=== PATIENT | female | born 1985 | race Two or more races ===

== ENCOUNTER → 2019-03-15 | Outpatient (CLI) | payer SELFPAY ==
--- NOTE | 2019-03-15 13:36 | RADIOLOGY REPORT (SQ) ---
EXAM DESCRIPTION: U/S [id number] TRNABD 1GES W/ODOP COMPLETED DATE/TIME: 03/15/2019 1:15 pm REASON FOR STUDY: Z34.81 ENCOUNTER FOR SUPRVSN OF NORMAL , FIRST TRIMESTER Z34.81 ENCOUNTE R FOR SUPRVSN OF NORMAL , FIRST TRIM COMPARISON: None. TECHNIQUE: Transabdominal static and realtime grayscale images acquired of the pelvis. Additional se lected spectral and color Doppler images recorded. All images stored on PACs. bHCG: Not applicable. CLINICAL DATES: 10 weeks 6 days. LIMITATIONS: None. FINDINGS: FETUS: Single Living intrauterine . ULTRASOUND EGA: 11 weeks 3 days. ULTRASOUND GABRIELLE: 10/01/2019 EFW: Not applicable less than 20 weeks. CRL: 4.66 cm. FHR: 158 beats per minute. SURVEY: Too early to assess. AMNIOTIC FLUID: Adequate amount. PLACENTA: Not yet developed due to early gestation. SUBCHORIONIC BLEED: No. SIZE OF BLEED: Not applicable. UTERUS: No masses. No anomalies. CERVICAL LENGTH: 3.3 cm. Closed. RIGHT ADNEXA: Normal ovary with normal vascular flow. No adnexal free fluid. No adnexal masses. LEFT ADNEXA: Normal ovary with normal vascular flow. No adnexal free fluid. No adnexal masses. FREE FLUID: None. OTHER: No other significant finding. IMPRESSION: LIVING INTRAUTERINE . EGA 11 WEEKS 3 DAYS. Rib Trimester of : First trimester - 0 to 13 weeks. TECHNICAL DOCUMENTATION: JOB ID: [id number] [employer]- All Rights Reserved rev Reading location - IP/workstation name: [email or web address]
== END ==
LOC: RAD 12:34
PROVIDERS: ATTEND Midwife
DX: Z34.81 Encounter for supervision of other normal pregnancy, first trimester (principal)
CPT/HCPCS: 76801

== ENCOUNTER → 2019-05-09 | Outpatient (CLI) | payer SELFPAY ==
--- NOTE | 2019-05-09 10:21 | RADIOLOGY REPORT (SQ) ---
EXAM DESCRIPTION: U/S OB 14+ TRNABD 1GES W/O DOP COMPLETED DATE/TIME: 05/09/2019 10:11 am REASON FOR STUDY: ENCTR FOR SUPERVISION OF OTHER NORMAL , 2ND TRIMESTER (Z34.82) Z34.82 EN COUNTER FOR SUPRVSN OF NORMAL , SECOND TRI COMPARISON: 03/15/2019 TECHNIQUE: Static and Dynamic grayscale imaging performed of gravid uterus using transabdominal appr oach. Additional selected color Doppler and spectral images recorded. All stored on PACS. LIMITATIONS: None. FINDINGS: FETUSES SEEN:1 EGA: 19 weeks 1 day. Calculated using BPD,FL,HC,AC documented on images. No discrepancy with clinica l dates. GABRIELLE: 10/02/2019 EFW: 275 grams PERCENTILE: Not applicable. LVP: 3.5 cm. PLACENTA: Posterior location. Grade 1. PRESENTATION: Cephalic. ANATOMY: HEART RATE: 144 beats per minute. FOUR CHAMBER HEART: Visualized. THREE VESSEL CORD: Yes. CORD INSERTION: Visualized. KIDNEYS AND BLADDER: Visualized. Appear normal. STOMACH: Visualized. Appears normal. SPINE: Normal as visualized. BRAIN AND LATERAL VENTRICLES: Visualized. Appear normal. OTHER: No other significant finding. MATERNAL ADNEXA: Ovaries within normal limits. CERVICAL LENGTH: 2.6 cm. Closed. OTHER: No other significant finding. IMPRESSION: LIVING INTRAUTERINE . ESTIMATED GESTATIONAL AGE 19 WEEKS 1 DAY. NO VISUALIZED ANOMALIES. Trimester of : SECOND-TRIMESTER. TECHNICAL DOCUMENTATION: JOB ID: [id number] [employer]- All Rights Reserved Reading location - IP/workstation name: [email or web address]
== END ==
LOC: RAD 09:18
PROVIDERS: ATTEND Midwife
DX: Z34.82 Encounter for supervision of other normal pregnancy, second trimester (principal); Z3A.19 19 weeks gestation of pregnancy
CPT/HCPCS: 76805

== ENCOUNTER 2019-09-25 04:30 | Inpatient (IN) | payer SELFPAY ==
[2019-09-25] MEDS ORDERED: LIDOCAINE 1% INJ-PF (10 MG/ML) 30 ML SDV ONE (05:02)
[2019-09-25] MEDS ORDERED: MISOPROSTOL 0.2 MG TABLET ONE (05:02)
[2019-09-25] MEDS ORDERED: OXYTOCIN/NORMAL SALINE 20 UNIT/1,000 ML RTUINJ ONE (05:02)
[2019-09-25] MEDS ORDERED: OXYTOCIN 10 UNIT/ML VIAL ONE (05:02)
[2019-09-25] MEDS ORDERED: RINGERS SOLUTION,LACTATED 1,000 ML IV ONE (05:05)
[2019-09-25] MEDS ORDERED: RINGERS SOLUTION,LACTATED 1,000 ML IV PRN (05:05)
[2019-09-25 05:19] LABS: APPEARANCE,URINE CLOUDY; BILIRUBIN,URINE NEGATIVE (NEGATIVE); COLOR,URINE YELLOW; GLUCOSE, URINE 50 mg/dL (NEGATIVE); KETONES,URINE NEGATIVE (NEGATIVE); LEUKOCYTE ESTERASE,URINE MODERATE (NEGATIVE); NITRITE,URINE NEGATIVE (NEGATIVE); PROTEIN,URINE NEGATIVE (NEGATIVE); URINE SPECIFIC GRAVITY 1.017; UROBILINOGEN,URINE NEGATIVE mg/dL (<2.0)
[2019-09-25 05:39] LABS: URINE AMPHETAMINES SCREEN NEGATIVE; URINE BARBITURATES SCREEN NEGATIVE; URINE BENZODIAZEPINES SCREEN NEGATIVE; URINE COCAINE SCREEN NEGATIVE; URINE MARIJUANA (THC) SCREEN NEGATIVE; URINE METHADONE SCREEN NEGATIVE; URINE PHENCYCLIDINE SCREEN NEGATIVE
[2019-09-25 05:41] LABS: ABSOLUTE EOSINOPHILS # (AUTO) 0.1 10^3/uL (0.0-0.6); ABSOLUTE LYMPHOCYTES (AUTO) 1.5 10^3/uL (0.5-4.7); ABSOLUTE MONOCYTES (AUTO) 0.6 10^3/uL (0.1-1.4); ABSOLUTE NEUT (AUTO) 9.8 10^3/uL (1.7-8.2); BASOPHILS % (AUTO) 0.3 % (0-2); HEMOGLOBIN 13.1 g/dL (12.0-15.5); LYMPHOCYTES % (AUTO) 12.7 % (13-45); MEAN CORPUSCULAR HEMOGLOBIN 32.3 pg (27.0-33.4); MEAN CORPUSCULAR HGB CONC 35.4 g/dL (32.0-36.0); MEAN CORPUSCULAR VOLUME 91 fl (80-97); PLATELET COUNT 162 10^3/uL (150-450); RED BLOOD COUNT 4.05 10^6/uL (3.72-5.28); RED CELL DISTRIBUTION WIDTH 13.6 % (11.5-14.0); TOTAL CELLS COUNTED % (AUTO) 100 %; WHITE BLOOD COUNT 12.1 10^3/uL (4.0-10.5)
[2019-09-25] MEDS ORDERED: BENZOCAINE/MENTHOL AEROSOL SPRAY 56 ML TOP PRN (05:58)
[2019-09-25] MEDS ORDERED: GLYCERIN/WITCH HAZEL LEAF 1 EACH MED..WIPE TP PRN (05:58)
[2019-09-25] MEDS ORDERED: DIPHENHYDRAMINE HCL 25 MG CAPSULE PO PRN (05:58)
[2019-09-25] MEDS ORDERED: MISOPROSTOL 0.2 MG TABLET PR PRN (05:58)
[2019-09-25] MEDS ORDERED: ACETAMINOPHEN 325 MG TABLET PO PRN (05:58)
[2019-09-25] MEDS ORDERED: ZOLPIDEM TARTRATE 5 MG TABLET PO PRN (05:58)
[2019-09-25] MEDS ORDERED: NA PHOS,M-B/NA PHOS,DI-BA (ADULT) 133 ML ENEMA PR PRN (05:58)
[2019-09-25] MEDS ORDERED: DIBUCAINE 1% OINTMENT 28 GM TP PRN (05:58)
[2019-09-25] MEDS ORDERED: MEASLES,MUMPS&RUBELLA VACC/PF 0.5 ML VIAL SUBCUT PRN (05:58)
[2019-09-25] MEDS ORDERED: PROMETHAZINE HCL INJ 25 MG/1 ML VIAL IV PRN (05:58)
[2019-09-25] MEDS ORDERED: PSEUDOEPHEDRINE HCL 30 MG TABLET PO PRN (05:58)
[2019-09-25] MEDS ORDERED: PROMETHAZINE HCL 25 MG SUPP.RECT PR PRN (05:58)
[2019-09-25] MEDS ORDERED: OXYTOCIN/NORMAL SALINE 20 UNIT/1,000 ML RTUINJ IV PRN (05:58)
[2019-09-25] MEDS ORDERED: PROMETHAZINE HCL 25 MG TABLET PO PRN (05:58)
[2019-09-25] MEDS ORDERED: ACETAMINOPHEN WITH CODEINE #3 TABLET PO PRN ×2 (05:58)
[2019-09-25] MEDS ORDERED: DIPH/PERTUSS(ACELL)/TETANUS VAC/PF 0.5 ML SYR (>=10YO) IM PRN (05:58)
[2019-09-25] MEDS ORDERED: MAGNESIUM HYDROXIDE SUSP 30 ML UDCUP PO PRN (05:58)
--- NOTE | 2019-09-25 06:39 | Admission Physical ---
Datetime Report Generated by CPN: 09/25/2019 06:39 CURRENT ADMISSION Chief Complaint: Uterine Contractions Indication for Induction: Not Applicable Admit Impression : Term, Intrauterine ; Active Labor; Intact Membranes Admit Plan: Admit to Unit; Initiate Labor Protocol ALLERGIES Medication Allergies: No Medication Allergies: No Known Allergies (09/25/2019) Latex: No Latex Allergies Food Allergies: none Environmental Allergies: none OBSTETRICAL HISTORY EDC: 10/05/2019 00:00 : 3 Para: 2 Term: 2 : 0 SAB: 0 IAB: 0 Livin Gestational Diabetes: No Rh Sensitization: No Incompetent Cervix: No JAY: No Infertility: No ART Treatment: No Uterine Anomaly: No IUGR: No Hx Previous C/S: No Macrosomia: No Hx Loss/Stillborn: No PIH: No Hx : No Placenta Previa/Abruption: No Depression/PP Depression: No PTL/PROM: No Post Hemorrhage: No Obstetrical History Comments: delivery x 2 SEE RECORDS Alcohol: No Marijuana : No Cocaine: No Other Illicit Drugs: No Cigarettes: Never Smoker. [id number] MEDICAL HISTORY Diabetes: No Blood Transfusion: No Pulmonary Disease (Asthma, TB): No Breast Disease: No Hypertension: No Statistics Intern Surgery: No Heart Disease: No Hosp/Surgery: No Autoimmune Disorder: No Anesthetic Complications: No Kidney Disease: No Abnormal Pap Smear: No Neuro/Epilepsy: No Psychiatric Disorders: No Other Medical Diseases: No Hepatitis/Liver Disease: No Significant Family History: No Varicosities/Phlebitis: No Trauma/Violence : No Thyroid Dysfunction: Yes Medical History Comments: Hypothyroidism INFECTIOUS HISTORY Gonorrhea: No Genital Herpes: No Chlamydia: No Tuberculosis: No Syphilis: No Hepatitis: No HIV/AIDS Exposure: No Rash or Viral Illness: No HPV: No PHYSICAL EXAM General: Normal HEENT: Normal Neurologic: Normal Thyroid: Deferred Heart: Normal Lungs: Normal Breast: Deferred Back: Normal Abdomen: Normal Genitourinary Exam: Normal Extremities: Normal DTRs: Normal Pelvic Type: Adequate Vital Signs: Reviewed VAGINAL EXAM Dilatation: 7 Effacement: 100 Station: -1 Contraction Comments: q 2-3 MEMBRANES Membranes: Intact FETUS A EGA: 38.4 Monitoring: External US FHR- Baseline: 125 Variability: Moderate 6-25bpm Accelerations: 15X15 Decelerations: None FHR Category: Category I Presentation: Vertex Admit Comment: 33yo at 38+4ega presents for active labor at 7cm and delivered precipitously. complicated by hypothyroidism. H/o toxo - IgG only elevated. GBS negative. Admit to labor and delivery. MARTII available. Anticipate PLANS FOR LABOR AND DELIVERY Labor and Delivery: None Pain Management: Medications; Epidural Feeding Preference: Both Circumcision: No INFORMED CONSENT Informed Consent Obtained: Vaginal Delivery; Risks, Benefits and Alternatives Discussed Signature: with User ID: [email or web address]
--- NOTE | 2019-09-25 06:47 | Delivery Summary ---
Del Sum A-C Datetime Report Generated by CPN: 09/25/2019 06:47 DELIVERY PERSONNEL DELIVERY PERSONNEL: [id number] Delivery Doctor:: Aliza Flores MD Labor and Delivery Nurse:: Nadiya Brown RNquill collector Nurse:: CLAUDIA Mata Marketing Rep/TOPOGRAPHICAL FIELD ASSISTANT: Linda Muñoz, ROLL TUBE SETTER MATERNAL INFORMATION Delivery Anesthesia: Pudendal Medications After Delivery: Pitocin Bolus-Please Comment; Cytotec 1000mcg Per Rectum/Vagina Estimated Blood Loss (ml): 50 Delivery QBL: 50 Maternal Complications: None Provider Comments: Pt consented and Pudendal Block placed for delivery. VMI delivered in TERRENCE presentation. No nuchal cord. Shoulders and body delivered without difficulty. Cord doubly clamped and cut and to maternal abdomen. Placenta delivered intact spontaneously. FF at U with intermittent atony resolved with cytotec 1000mcg pr and pitocin. 1st degree perineal laceration reviewed with good hemostasis. Mother and baby stable upon provider leaving the room. LABOR SUMMARY EDC: 10/05/2019 00:00 No. Babies in Womb: 1 Attempted: No Labor Anesthesia: None LABOR INFORMATION Reason for Induction: Not Applicable Onset of Labor: 09/24/2019 23:00 Complete Dilatation: 09/25/2019 05:31 Oxytocin: N/A Group B Beta Strep: neg Antibiotics # of Doses: 0 Steroids Given: None Reason Steroids Not Administered: Not Applicable MEMBRANES Membranes Rupture Method: Spontaneous Rupture of Membranes: 09/25/2019 05:15 Length of Rupture (hr): 0.40 Amniotic Fluid Color: Clear Amniotic Fluid Amount: Small Amniotic Fluid Odor: Normal STAGES OF LABOR Stage 1 hr: 6 Stage 1 min: 31 Stage 2 hr: 0 Stage 2 min: 8 Stage 3 hr: 0 Stage 3 min: 4 Total Time in Labor hr: 6 Total Time in Labor min: 43 VAGINAL DELIVERY Episiotomy: None Laceration #1: None Laceration Extension #1: First Degree Laceration Repair: Yes Laceration Repair Note: 1st degree perineal laceration repaired with good hemostasis. Sponge Count Correct: Yes Sharps Count Correct: Yes CSECTION DELIVERY Primary Indication: N/A Secondary Indication: N/A CSection Incidence: N/A Labor: N/A Elective: N/A CSection Incision: N/A BABY A INFORMATION Infant Delivery Date/Time: 09/25/2019 05:39 Method of Delivery: Vaginal Nurse Controlled Delivery: No Born in Route : No : N/A Forceps: N/A Vacuum Extraction: N/A Shoulder Dystocia : No PRESENTATION/POSITION BABY A Presentation: Cephalic Cephalic Presentation: Vertex Vertex Position: Left Occipital Anterior Breech Presentation: N/A PLACENTA INFORMATION BABY A Placenta Delivery Time : 09/25/2019 05:43 Placenta Method of Delivery: Expressed Placenta Status: Delivered SCORES BABY A Heart Rate 1 min: >100 bpm Resp Effort 1 min: Good Cry Reflex Irritability 1 min: Cough or Sneeze or Pulls Away Muscle Tone 1 min: Active Motion Color 1 min: Body [place], Extremities Blue SCORE 1 MIN: 9 Heart Rate 5 min: >100 bpm Resp Effort 5 min: Good Cry Reflex Irritability 5 min: Cough or Sneeze or Pulls Away Muscle Tone 5 min: Active Motion Color 5 min: Body [place], Extremities Blue SCORE 5 MIN: 9 INFORMATION BABY A Gestational Age at Delivery: 38.4 Gestational Status: Early Term- 37- 38.6 Weeks Infant Outcome : Liveborn Infant Condition : Stable Sex: Male IDENTIFICATION BABY A Verification Date/Time: 09/25/2019 06:08 ID Band Number: [id number] Mother's Name Verified: Yes RN Verifying Infant: K. Kevin, RN Additional Verifying Personnel: Donald Muñoz, RN WEIGHT/LENGTH BABY A Infant Birthweight (gm): 3285 Infant Weight (lb): 7 Weight (oz): 4 Infant Length (in): 20.00 Infant Length (cm): 50.80 CORD INFORMATION BABY A No. Cord Vessels: 3 Nuchal Cord : N/A Cord Blood Taken: Yes-For Eval (Mom's Blood Type - or O+) Suction: None ASSESSMENT BABY A Complications: None Physical Findings at Delivery: Within Normal Limits Physical Findings- Other: see initial nursery assessment Infant Respirations: Appears Normal Skin to Skin: Yes Skin to Skin Time (min): 60+ Rn Pacu/ALS Called : No Infant Care By: Bill Em RN Transferred To: Remains with Mother BABY B INFORMATION : N/A SIGNATURES Signature: with User ID: [email or web address]
[2019-09-25] MEDS ORDERED: IBUPROFEN 800 MG TABLET ONE (09:20)
[2019-09-25] MEDS: DOCUSATE SODIUM 100 MG CAPSULE PO SCH ×2 (12:25→18:25)
[2019-09-25] MEDS: PRENATAL VITAMIN W DHA CAPSULE PO SCH (12:25)
[2019-09-25] MEDS: IBUPROFEN 800 MG TABLET PO SCH ×3 (12:25→21:32)
[2019-09-25] MEDS: FERROUS SULFATE 325 MG TABLET PO SCH ×2 (12:25→18:25)
[2019-09-25] MEDS: FAMOTIDINE 20 MG TABLET PO SCH ×2 (12:25→21:32)
[2019-09-25] MEDS: SENNOSIDES/DOCUSATE 8.6-50 MG 1 EACH TABLET PO SCH (12:26)
[2019-09-26] MEDS: IBUPROFEN 800 MG TABLET PO SCH ×3 (05:54→21:16)
[2019-09-26 07:00] LABS: HEMATOCRIT 35.5 % (36.0-47.0); HEMOGLOBIN 12.5 g/dL (12.0-15.5); MEAN CORPUSCULAR HEMOGLOBIN 32.7 pg (27.0-33.4); MEAN CORPUSCULAR HGB CONC 35.1 g/dL (32.0-36.0); MEAN CORPUSCULAR VOLUME 93 fl (80-97); PLATELET COUNT 144 10^3/uL (150-450); RED BLOOD COUNT 3.82 10^6/uL (3.72-5.28); RED CELL DISTRIBUTION WIDTH 14.1 % (11.5-14.0); WHITE BLOOD COUNT 10.1 10^3/uL (4.0-10.5)
[2019-09-26] MEDS: DOCUSATE SODIUM 100 MG CAPSULE PO SCH ×2 (11:08→17:43)
[2019-09-26] MEDS: FERROUS SULFATE 325 MG TABLET PO SCH ×2 (11:08→17:43)
[2019-09-26] MEDS: PRENATAL VITAMIN W DHA CAPSULE PO SCH (11:08)
[2019-09-26] MEDS: SENNOSIDES/DOCUSATE 8.6-50 MG 1 EACH TABLET PO SCH (11:08)
[2019-09-26] MEDS: FAMOTIDINE 20 MG TABLET PO SCH ×2 (11:08→21:16)
--- NOTE | 2019-09-26 16:55 | PDOC PROGRESS REPORT ---
Subjective-OB Progress Note for:: 09/26/19 Subjective: reports bleeding slowing, pain controlled with current meds. denies needs Physical Exam (OB) Vital Signs: Temp Pulse Resp BP Pulse Ox 97.4 F 61 16 108/75 100 09/26/19 13:30 09/26/19 13:30 09/26/19 13:30 09/26/19 13:30 09/26/19 13:30 Intake & Output 09/25/19 09/26/19 09/27/19 06:59 06:59 06:59 Intake Total 600 Balance 600 - Abdomen Description: Soft Hernia Present: No Fundal Description: Firm, Midline Fundal Height: u/u - u/2 - Abdominal Distension: No distension Tenderness: Nontender - Extremities Lower extremities: Vikki's sign - neg Calf: Normal, Nontender Objective-Diagnostic Laboratory: 09/26/19 06:34 09/26/19 06:34 WBC 10.1 RBC 3.82 Hgb 12.5 Hct 35.5 L MCV 93 MCH 32.7 MCHC 35.1 RDW 14.1 H Plt Count 144 L Assessment and Plan(PN) - Time Spent with Patient Time with patient: Less than 15 minutes - Disposition Anticipated Discharge: Home Within: within 24 hours
[2019-09-27] MEDS: IBUPROFEN 800 MG TABLET PO SCH ×2 (05:10→13:54)
[2019-09-27 08:37] VITALS: BP 98/65
[2019-09-27] MEDS: PRENATAL VITAMIN W DHA CAPSULE PO SCH (09:43)
[2019-09-27] MEDS: DOCUSATE SODIUM 100 MG CAPSULE PO SCH (09:43)
[2019-09-27] MEDS: FERROUS SULFATE 325 MG TABLET PO SCH (09:43)
[2019-09-27] MEDS: FAMOTIDINE 20 MG TABLET PO SCH (09:43)
[2019-09-27] MEDS: SENNOSIDES/DOCUSATE 8.6-50 MG 1 EACH TABLET PO SCH (09:43)
--- NOTE | 2019-09-27 15:14 | PDOC DISCHARGE SUMMARY ---
Impression - Admit/DC Date/PCP Admission Date/Primary Care Provider: 09/25/19 05:00 KIRK ANDREWS MD Discharge Date: 09/27/19 - Discharge Diagnosis (1) Active labor at term Is this a current diagnosis for this admission?: Yes (2) Obstetrical laceration, first degree Is this a current diagnosis for this admission?: Yes (3) Vaginal delivery Is this a current diagnosis for this admission?: Yes - Assessment Summary: 33yo G3 now P3 s/p ppd 2 . Pt ambulating, voiding and without difficulty. Reports pain well controlled by medication, no concerns today and ready for discharge - Additional Information Resuscitation Status: Full Code Discharge Diet: As Tolerated, Regular Discharge Activity: Activity As Tolerated, Balance Activity w/Rest, No Lifting Over 10 Pounds, Pelvic Rest, Slowly Increase Activity, No tub bath, Walk Frequently Referrals: [facility] [Provider Group] (Please call and schedule a 4 week follow up at [facility]. ) Prescriptions: Ibuprofen [Motrin 800 mg Tablet] 800 mg PO Q8HP PRN #20 tablet PRN Reason: Abdominal Cramping Home Medications: Ibuprofen [Motrin 800 mg Tablet] 800 mg PO Q8HP PRN #20 tablet 09/27/19 Results Laboratory Results: WBC 10.1 10^3/uL (4.0-10.5) 09/26/19 06:34 RBC 3.82 10^6/uL (3.72-5.28) 09/26/19 06:34 Hgb 12.5 g/dL (12.0-15.5) 09/26/19 06:34 Hct 35.5 % (36.0-47.0) L 09/26/19 06:34 MCV 93 fl (80-97) 09/26/19 06:34 MCH 32.7 pg (27.0-33.4) 09/26/19 06:34 MCHC 35.1 g/dL (32.0-36.0) 09/26/19 06:34 RDW 14.1 % (11.5-14.0) H 09/26/19 06:34 Plt Count 144 10^3/uL (150-450) L 09/26/19 06:34 Lymph % (Auto) 12.7 % (13-45) L 09/25/19 05:27 [place] % (Auto) 5.0 % (3-13) 09/25/19 05:27 Eos % (Auto) 1.0 % (0-6) 09/25/19 05:27 Baso % (Auto) 0.3 % (0-2) 09/25/19 05:27 Absolute Neuts (auto) 9.8 10^3/uL (1.7-8.2) H 09/25/19 05:27 Absolute Lymphs (auto) 1.5 10^3/uL (0.5-4.7) 09/25/19 05:27 Absolute Monos (auto) 0.6 10^3/uL (0.1-1.4) 09/25/19 05:27 Absolute Eos (auto) 0.1 10^3/uL (0.0-0.6) 09/25/19 05:27 Absolute Basos (auto) 0.0 10^3/uL (0.0-0.2) 09/25/19 05:27 Seg Neutrophils % 81.0 % (42-78) H 09/25/19 05:27 Urine Color YELLOW 09/25/19 04:40 Urine Appearance CLOUDY 09/25/19 04:40 Urine pH 6.0 (5.0-9.0) 09/25/19 04:40 Ur Specific Ernest 1.017 09/25/19 04:40 Urine Protein NEGATIVE mg/dL (NEGATIVE) 09/25/19 04:40 Urine Glucose (UA) 50 mg/dL (NEGATIVE) H 09/25/19 04:40 Urine Ketones NEGATIVE mg/dL (NEGATIVE) 09/25/19 04:40 Urine Blood NEGATIVE (NEGATIVE) 09/25/19 04:40 Urine Nitrite NEGATIVE (NEGATIVE) 09/25/19 04:40 Urine Bilirubin NEGATIVE (NEGATIVE) 09/25/19 04:40 Urine Urobilinogen NEGATIVE mg/dL (<2.0) 09/25/19 04:40 Ur Leukocyte Esterase MODERATE (NEGATIVE) H 09/25/19 04:40 Urine Ascorbic Acid 40 (NEGATIVE) H 09/25/19 04:40 Urine Opiates Screen NEGATIVE 09/25/19 04:40 Urine Methadone Screen NEGATIVE 09/25/19 04:40 Ur Barbiturates Screen NEGATIVE 09/25/19 04:40 Ur Phencyclidine Scrn NEGATIVE 09/25/19 04:40 Ur Amphetamines Screen NEGATIVE 09/25/19 04:40 U Benzodiazepines Scrn NEGATIVE 09/25/19 04:40 Urine Cocaine Screen NEGATIVE 09/25/19 04:40 U Marijuana (THC) Screen NEGATIVE 09/25/19 04:40 RPR NONREACTIVE (NONREACTIVE) 09/25/19 05:27 Blood Type O POSITIVE 09/25/19 05:27 Antibody Screen NEGATIVE 09/25/19 05:27
== END 2019-09-27 15:38 | disposition home or self-care (01) | DRG 807 ==
LOC: LC 04:30 → LR 05:00 → 2S 10:00
PROVIDERS: ADMIT Student in an Organized Health Care Education/Training Program; ATTEND Student in an Organized Health Care Education/Training Program
PROC: 10E0XZZ Delivery of Products of Conception, External Approach (ICD-10-PCS; principal; 2019-09-25)
PROC: 0HQ9XZZ Repair Perineum Skin, External Approach (ICD-10-PCS; 2019-09-25)
DX: O99.284 Endocrine, nutritional and metabolic diseases complicating childbirth (principal); Z37.0 Single live birth; E03.9 Hypothyroidism, unspecified; O70.0 First degree perineal laceration during delivery; Z3A.38 38 weeks gestation of pregnancy
CPT/HCPCS: 36415; 80307; 81005; 85025; 85027; 86592; 86850; 86900; 86901; J2590; J3490